=== PATIENT | female | born 1950 | race Caucasian/White ===

== ENCOUNTER 2016-10-01 13:50 | Emergency (ER) | payer MEDICARE ==
[2016-10-01] MEDS ORDERED: RX INFO: IV CONTRAST WAS GIVEN 1 EACH MISC MISCELLANE PRN (14:54)
[2016-10-01] MEDS ORDERED: SODIUM CHLORIDE 0.9% 1,000 ML IV STA (14:54)
[2016-10-01] MEDS ORDERED: PANTOPRAZOLE 40 MG/10 ML VIAL IVP STA (14:54)
--- NOTE | 2016-10-01 15:21 | ED ---
GI Bleed HPI - General Chief complaint: GI Bleed Stated complaint: poss internal bleeding/back pain-sent by Dr. Celaya Seen by Provider: 10/01/16 14:43 Source: patient Mode of arrival: ambulatory Limitations: no limitations - History of Present Illness Initial comments: This 65-year-old white female presents with a complaint of some black stools. She barely has had 3 black stools over the past one day. She also complains of some pain into her left flank region for last 2-3 weeks. She apparently fell 3- 1/2 weeks ago but denies injuring her flank region. She also has some mild diffuse anterior abdominal pain. This is minimal in nature but she states that her flank pain is fairly severe. She's been taking Motrin 800 twice a day for the pain. She denies any nausea vomiting diarrhea. She has had occasional constipation but denies any fevers. She denies any hematuria or dysuria but has had occasional urgency. She denies any previous similar incidents. She denies any bright red blood per rectum. She denies any history of a colonoscopy in the past. She has not utilized any Pepto-Bismol. She was seen by Dr. Ornelas today in office and sent to the ER for further treatment and evaluation. She refuses any pain medications initially. No other complaints or modifying factors. - Related Data Home Medications Medication Instructions Recorded Confirmed Albuterol Inhaler [Ventolin Hfa 1 - 2 puff INHALATION Q6HR PRN 02/22/15 10/01/16 Inhaler] Gabapentin [Neurontin] 300 mg PO BID 02/22/15 10/01/16 Ibuprofen [Motrin] 800 mg PO BID PRN 02/22/15 10/01/16 Linagliptin [Tradjenta] 5 mg PO DAILY 02/22/15 10/01/16 Oxybutynin Chloride [Oxybutynin 10 mg PO DAILY 02/22/15 10/01/16 Chloride ER] Simvastatin [Zocor] 20 mg PO HS 02/22/15 10/01/16 Topiramate [Topamax] 50 mg PO BID 02/22/15 10/01/16 Losartan [Cozaar] 12.5 - 25 mg PO DAILY 10/01/16 10/01/16 Previous Rx's Medication Instructions Recorded traMADol HCl [Ultram] 50 - 100 mg PO Q6H PRN #20 tab 10/01/16 Allergies Allergy/AdvReac Type Severity Reaction Status Date / Time venom-honey bee Allergy Anaphylaxis Verified 10/01/16 15:00 [bee venom (honey bee)] ANCHOVIES Allergy Anaphylaxis Uncoded 10/01/16 13:58 Review of Systems ROS Statement: Those systems with pertinent positive or pertinent negative responses have been documented in the HPI. ROS Other: All systems not noted in ROS Statement are negative. Past Medical History Past Medical History: Asthma, Diabetes Mellitus, Hyperlipidemia, Hypertension, Musculoskeletal Disorder, Osteoarthritis (OA), Pneumonia, Seizure Disorder, Syncope, Thyroid Disorder Additional Past Medical History / Comment(s): HX KIDNEY STONES. DDD. HX OCC IDIOPATHIC SEIZURES, R/T STRESS, CHRONIC MIGRAINES, LAST SEIZURE EPISODE 03/07. MVP. ARRYTHMIA. SEE H&P. History of Any Multi-Drug Resistant Organisms: None Reported Past Surgical History: Adenoidectomy, Appendectomy, Breast Surgery, Cholecystectomy, Hysterectomy, Pacemaker, Tonsillectomy, Tubal Ligation Additional Past Surgical History / Comment(s): BREAST BX. TUBAL PREG PROC. SINUS/RHINOPLASTY. cataract surg. Loop recorder placed 03/2015. Past Anesthesia/Blood Transfusion Reactions: No Reported Reaction Additional Past Anesthesia/Blood Transfusion Reaction / Comment(s): Pt reports never having a blood transfusion. Past Psychological History: Bipolar, Depression Smoking Status: Current every day smoker Past Alcohol Use History: None Reported Past Drug Use History: None Reported - Past Family History Mother Family Medical History: Cancer General Exam - General Exam Comments Initial Comments: GENERAL: The patient is well nourished and well hydrated. VITAL SIGNS: Heart rate, blood pressure, respiratory rate reviewed as recorded in nurse's notes. EYES: Pupils are round and reactive. Extraocular movements are intact. No conjunctival / lid redness or swelling. ENT: No external evidence of injury, swelling, or ecchymosis. Airway is patent. Throat is clear. NECK: Nontender. No swelling or evidence of injury. No subcutaneous emphysema. Trachea is midline. No thyroid mass. HEART: Regular rate and rhythm. Good peripheral pulses. LUNGS/CHEST: Breath sounds clear and equal bilaterally. No rales, rhonchi, or wheezes. No ecchymosis, subcutaneous emphysema, or tenderness. ABDOMEN: There is mild diffuse abdominal tenderness. There is mild tenderness in the left flank. No palpable masses or organomegaly. No peritoneal signs. No abdominal wall swelling or ecchymosis. EXTREMITIES: No extremity tenderness. Normal muscle tone and function. No thoracolumbar tenderness. NEUROLOGIC: Sensation is grossly intact. Cranial nerve exam reveals face is symmetrical, tongue is midline, speech is clear. SKIN: No abrasions or ecchymosis is noted. No induration or masses noted. PSYCHIATRIC: Alert and oriented. Appropriate behavior and judgment. Rectal exam: No gross blood is identified, no hemorrhoids identified. Hemoccult is negative. Limitations: no limitations Course Vital Signs 10/01/16 10/01/16 10/01/16 13:55 15:03 15:14 Temperature 97.6 F 98.4 F Pulse Rate 84 56 L Respiratory 18 18 Rate Blood Pressure 135/63 121/64 O2 Sat by Pulse 97 96 Oximetry 10/01/16 10/01/16 16:22 17:16 Temperature 98.5 F Pulse Rate 70 60 Respiratory 18 20 Rate Blood Pressure 147/63 128/69 O2 Sat by Pulse 100 98 Oximetry Medical Decision Making - Medical Decision Making The patient was seen and examined. All diagnostics were reviewed. An EKG was done which shows a normal sinus rhythm at a rate of 62 with a sinus arrhythmia. She has occasional paced atrial complexes. The CA interval is 138, QRS duration is 74, and the QTc interval is 442. An IV is started and she is mildly hydrated. Laboratory is reviewed and shows a stable hemoglobin at 12.7. Occult blood is negative. Remainder labs are unremarkable. Patient had a computed tomography scan of the abdomen and pelvis and this does show a 2-3 cm hypodensity in the pelvis which may be related to uterine fibroid. Is felt as though this is unlikely as the patient apparently had a hysterectomy. Exact cause of her flank pain is not determined but is felt that certainly could be muscle skeletal in nature. She relates a significant history of back problems with previous epidural injections. Is felt as though she is stable to follow- up with Dr. Ornelas for further workup and treatment in this regard. They pain medication will be prescribed in this regard. In addition, it does not appear as though there is any current evidence of GI bleed. She nevertheless is taking ibuprofen 800 mg twice a day and she is told to stop this in case she did have a GI bleed previously that has resolved. She's never had a colonoscopy and is felt as though she benefit from follow-up with GI in this regard. It is felt as though she is stable for discharge and leaves no severe distress. - Lab Data Result diagrams: 10/01/16 15:21 10/01/16 15:21 Lab Results 10/01/16 10/01/16 10/01/16 Range/Units 15:21 15:21 15:21 WBC 7.6 (3.8-10.6) k/uL RBC 3.99 (3.80-5.40) m/uL Hgb 12.7 (11.4-16.0) gm/dL Hct 36.9 (34.0-46.0) % MCV 92.5 (80.0-100.0) fL MCH 31.9 (25.0-35.0) pg MCHC 34.4 (31.0-37.0) g/dL RDW 12.9 (11.5-15.5) % Plt Count 198 (150-450) k/uL Neutrophils % 61 % Lymphocytes % 30 % Monocytes % 5 % Eosinophils % 2 % Basophils % 1 % Neutrophils # 4.6 (1.3-7.7) k/uL Lymphocytes # 2.3 (1.0-4.8) k/uL Monocytes # 0.4 (0-1.0) k/uL Eosinophils # 0.1 (0-0.7) k/uL Basophils # 0.0 (0-0.2) k/uL PT (9.0-12.0) sec INR (<1.1) APTT (22.0-30.0) sec Sodium 143 (137-145) mmol/L Potassium 4.0 (3.5-5.1) mmol/L Chloride 109 H (98-107) mmol/L Carbon Dioxide 22 (22-30) mmol/L Anion Gap 12 mmol/L BUN 13 (7-17) mg/dL Creatinine 0.82 (0.52-1.04) mg/dL Est GFR (MDRD) Af Amer >60 (>60 ml/min/1.73 sqM) Est GFR (MDRD) Non-Af >60 (>60 ml/min/1.73 sqM) Glucose 123 H (74-99) mg/dL POC Glucose (mg/dL) (75-99) mg/dL POC Glu Service Order Clerk ID Plasma Lactic Acid Golden 1.2 (0.7-2.0) mmol/L Calcium 10.0 (8.4-10.2) mg/dL Total Bilirubin 0.5 (0.2-1.3) mg/dL AST 22 (14-36) U/L ALT 42 (9-52) U/L Alkaline Phosphatase 91 (38-126) U/L Total Protein 7.7 (6.3-8.2) g/dL Albumin 4.4 (3.5-5.0) g/dL Amylase <30 L (30-110) U/L Lipase 77 (23-300) U/L Stool Occult Blood (Negative) Blood Type Blood Type Recheck Antibody Screen Spec Expiration Date 10/01/16 10/01/16 10/01/16 Range/Units 15:21 15:21 15:29 WBC (3.8-10.6) k/uL RBC (3.80-5.40) m/uL Hgb (11.4-16.0) gm/dL Hct (34.0-46.0) % MCV (80.0-100.0) fL MCH (25.0-35.0) pg MCHC (31.0-37.0) g/dL RDW (11.5-15.5) % Plt Count (150-450) k/uL Neutrophils % % Lymphocytes % % Monocytes % % Eosinophils % % Basophils % % Neutrophils # (1.3-7.7) k/uL Lymphocytes # (1.0-4.8) k/uL Monocytes # (0-1.0) k/uL Eosinophils # (0-0.7) k/uL Basophils # (0-0.2) k/uL PT 10.4 (9.0-12.0) sec INR 1.0 (<1.1) APTT 23.4 (22.0-30.0) sec Sodium (137-145) mmol/L Potassium (3.5-5.1) mmol/L Chloride (98-107) mmol/L Carbon Dioxide (22-30) mmol/L Anion Gap mmol/L BUN (7-17) mg/dL Creatinine (0.52-1.04) mg/dL Est GFR (MDRD) Af Amer (>60 ml/min/1.73 sqM) Est GFR (MDRD) Non-Af (>60 ml/min/1.73 sqM) Glucose (74-99) mg/dL POC Glucose (mg/dL) (75-99) mg/dL POC Glu Service Order Clerk ID Plasma Lactic Acid Golden (0.7-2.0) mmol/L Calcium (8.4-10.2) mg/dL Total Bilirubin (0.2-1.3) mg/dL AST (14-36) U/L ALT (9-52) U/L Alkaline Phosphatase (38-126) U/L Total Protein (6.3-8.2) g/dL Albumin (3.5-5.0) g/dL Amylase (30-110) U/L Lipase (23-300) U/L Stool Occult Blood Negative (Negative) Blood Type A Positive Blood Type Recheck CABO Indicated Antibody Screen NEGATIVE Spec Expiration Date 10/04/2016 - 232010/01/16 Range/Units 15:42 WBC (3.8-10.6) k/uL RBC (3.80-5.40) m/uL Hgb (11.4-16.0) gm/dL Hct (34.0-46.0) % MCV (80.0-100.0) fL MCH (25.0-35.0) pg MCHC (31.0-37.0) g/dL RDW (11.5-15.5) % Plt Count (150-450) k/uL Neutrophils % % Lymphocytes % % Monocytes % % Eosinophils % % Basophils % % Neutrophils # (1.3-7.7) k/uL Lymphocytes # (1.0-4.8) k/uL Monocytes # (0-1.0) k/uL Eosinophils # (0-0.7) k/uL Basophils # (0-0.2) k/uL PT (9.0-12.0) sec INR (<1.1) APTT (22.0-30.0) sec Sodium (137-145) mmol/L Potassium (3.5-5.1) mmol/L Chloride (98-107) mmol/L Carbon Dioxide (22-30) mmol/L Anion Gap mmol/L BUN (7-17) mg/dL Creatinine (0.52-1.04) mg/dL Est GFR (MDRD) Af Amer (>60 ml/min/1.73 sqM) Est GFR (MDRD) Non-Af (>60 ml/min/1.73 sqM) Glucose (74-99) mg/dL POC Glucose (mg/dL) 134 H (75-99) mg/dL POC Glu Service Order Clerk ID Laurel Quintero Plasma Lactic Acid Golden (0.7-2.0) mmol/L Calcium (8.4-10.2) mg/dL Total Bilirubin (0.2-1.3) mg/dL AST (14-36) U/L ALT (9-52) U/L Alkaline Phosphatase (38-126) U/L Total Protein (6.3-8.2) g/dL Albumin (3.5-5.0) g/dL Amylase (30-110) U/L Lipase (23-300) U/L Stool Occult Blood (Negative) Blood Type Blood Type Recheck Antibody Screen Spec Expiration Date Disposition Clinical Impression: Abdominal pain, Melena, Flank pain Disposition: HOME SELF-CARE Condition: Fair Instructions: Abdominal Pain (ED), Gastrointestinal Bleeding (ED), Back Pain ( ED) Additional Instructions: Please stop the Motrin 800 mg. Prescriptions: traMADol HCl [Ultram] 50 - 100 mg PO Q6H PRN #20 tab PRN Reason: Pain Referrals: Jonathan Ornelas MD [Primary Care Provider] - 1-2 days Lila Allen MD [STAFF PHYSICIAN] - 10/06/16 Time of Disposition: 17:38
[2016-10-01 15:37] LABS: Basophils % (A) 1 %; CH 32.4; CHCM 35.2; Eosinophils # (A) 0.1 k/uL (0-0.7); Eosinophils % (A) 2 %; HCT 36.9 % (34.0-46.0); HGB 12.7 gm/dL (11.4-16.0); Luc # (Auto) 0.14; Luc % (Auto) 2; Lymphocytes # (A) 2.3 k/uL (1.0-4.8); Lymphocytes % (A) 30 %; MCH 31.9 pg (25.0-35.0); MCHC 34.4 g/dL (31.0-37.0); MCV 92.5 fL (80.0-100.0); Mean Platelet Volume 7.2; Monocytes # (A) 0.4 k/uL (0-1.0); Monocytes % (A) 5 %; Neutrophils # (A) 4.6 k/uL (1.3-7.7); Neutrophils % (A) 61 %; RBC 3.99 m/uL (3.80-5.40); RDW 12.9 % (11.5-15.5); WBC 7.6 k/uL (3.8-10.6); WBC (Perox) 8.14
[2016-10-01 15:46] LABS: Glucose,Whole Blood 134 mg/dL (75-99)
[2016-10-01 15:48] LABS: ALT 42 U/L (9-52); AST 22 U/L (14-36); Alkaline Phosphatase 91 U/L (38-126); Amylase <30 U/L (30-110); Anion Gap 12 mmol/L; Blood Urea Nitrogen 13 mg/dL (7-17); Carbon Dioxide 22 mmol/L (22-30); Chloride 109 mmol/L (98-107); Glucose 123 mg/dL (74-99); Non-African American GFR(MDRD) >60 (>60 ml/min/1.73 sqM); Sodium 143 mmol/L (137-145); Total Bilirubin 0.5 mg/dL (0.2-1.3); Total Protein 7.7 g/dL (6.3-8.2)
[2016-10-01] MEDS ORDERED: HYDROmorphone 1 MG/ML 1 ML SYRINGE IVP STA (15:50)
[2016-10-01 15:54] LABS: Partial Thromboplastin Time 23.4 sec (22.0-30.0); Prothrombin Time 10.4 sec (9.0-12.0)
--- NOTE | 2016-10-01 17:15 | CT ---
EXAMINATION TYPE: CT abdomen pelvis w con DATE OF EXAM: 10/01/2016 4:13 PM HISTORY: Pt states of RLQ pain and black stools. CT DLP: 1535mGycm Automated Exposure Control for Dose Reduction was Utilized. CONTRAST: CT scan of the abdomen and pelvis is performed without oral but with IV Contrast, patient injected wi th 100 mL of Omnipaque 300. COMPARISON: None. FINDINGS: LUNG BASES: There is partial visualization of right-sided pacemaker/AICD leads. LIVER/GB: Gallbladder is not visualized and likely surgically absent. Liver is diffusely low dense carrizales ggesting fatty infiltration. PANCREAS: No significant abnormality is seen. SPLEEN: No significant abnormality is seen. ADRENALS: No significant abnormality is seen. KIDNEYS: There is nonobstructing 3 mm calculus lower pole level right kidney on axial image 37. There is symmetric cortical medullary uptake and excretion from both kidneys without evidence of hydroneph rosis bilaterally. Some scattered pelvic phleboliths are seen. BOWEL: Evaluation of bowel is suboptimal due to lack of enteric contrast. There is no suspicious dila tation of stomach or duodenal sweep. There is no suspicious small or large bowel dilatation. Terminal ileum is felt within normal limits. There is no inflammatory change at base of cecum to suggest acut e appendicitis. UTERUS/ADNEXA: There is 2.3 cm low dense lesion at level of the uterus could reflect uterine fibroid. Possible remnant uterus is somewhat small in size. LYMPH NODES: No greater than 1cm abdominal or pelvic lymph nodes are appreciated. OSSEOUS STRUCTURES: There is disc space narrowing with vacuum disc phenomenon and anterior T11-T12 le juan m. OTHER: No significant additional abnormality is seen. IMPRESSION: No bowel obstruction is present. No suspicious bowel wall thickening identified. No signi ficant finding is seen to account for patient's symptoms on this study. A 2.3 cm low dense round lesi on in pelvis could reflect uterine fibroid, consider pelvic ultrasound follow-up.
[2016-10-01 17:18] VITALS: RESP 20
[2016-10-01 17:57] VITALS: BP 113/57; PULSE 77; TEMP 97.6
== END 2016-10-01 18:02 | disposition home or self-care (01) ==
LOC: EC 13:50
DX: R10.9 Unspecified abdominal pain (principal); K92.1 Melena; G40.909 Epilepsy, unspecified, not intractable, without status epilepticus; E11.9 Type 2 diabetes mellitus without complications; E78.5 Hyperlipidemia, unspecified; I10 Essential (primary) hypertension; Z95.0 Presence of cardiac pacemaker; G43.909 Migraine, unspecified, not intractable, without status migrainosus; Z79.899 Other long term (current) drug therapy; Z79.84 Long term (current) use of oral hypoglycemic drugs; Z87.442 Personal history of urinary calculi; F17.200 Nicotine dependence, unspecified, uncomplicated; Z91.030 Bee allergy status; Z91.018 Allergy to other foods
CPT/HCPCS: 36415; 93005; 86900; 86901; 80053; 82150; 83605; 83690; 85025; 85610; 85730; 86850; 82272; 74177; 99285; 96374; 96375; 96361; J1170; Q9967; C9113

== ENCOUNTER → 2017-06-05 | Outpatient (CLI) | payer MEDICARE ==
[2017-06-05 12:41] LABS: Blood Urea Nitrogen 16 mg/dL (7-17); Non-African American GFR(MDRD) >60 (>60 ml/min/1.73 sqM)
--- NOTE | 2017-06-05 14:14 | CT ---
EXAMINATION TYPE: CT lumbar spine wo con DATE OF EXAM: 06/05/2017 COMPARISON: NONE HISTORY: 66-year-old female low back pain TECHNIQUE: Contiguous axial scanning of the lumbar spine without IV contrast. Coronal and sagittal re constructions performed. CT DLP: 901.9 mGycm Automated exposure control for dose reduction was used. FINDINGS: There is a 3 mm calculus in the mid right ureter with mild hydronephrosis. Noise artifacts from patient's large body habitus. Vertebral body heights are preserved and alignment is maintained. Moderate to advanced degenerative disc disease at T11-T12 with endplate irregularity, sclerosis, and small Schmorl's nodes. Disc vacuum is present at this level. Hypertrophic facet arthropathy mid to lower lumbar spine. At T11-T12, no focal disc herniation or significant foraminal stenosis is seen. At T12-L1, may be a tiny left paracentral disc protrusion, axial image 17 without significant foramin al stenosis. At L1-L2, no canal or foraminal stenosis identified. At L2-L3, mild bulging disc without significant canal or foraminal stenosis seen. At L3-L4, ligamentum flavum thickening and facet arthropathy with mild right neuroforaminal stenosis. No significant spinal canal stenosis. At L4-L5, mild bulging disc with ligamentum flavum thickening and hypertrophic facet arthropathy. No significant canal or foraminal stenosis identified. At L5-S1, there is a central disc osteophyte complex with facet degenerative change. This results in mild bilateral neuroforaminal stenosis without spinal canal stenosis. IMPRESSION: 1. A 3 MM CALCULUS IN THE MID RIGHT URETER WITH MILD OBSTRUCTIVE UROPATHY SUGGESTED. CORRELATE FOR RE NAL COLIC. 2. MILD MULTILEVEL DEGENERATIVE DISC DISEASE. HYPERTROPHIC FACET ARTHROPATHY MID TO LOWER LUMBAR SPIN E. THIS RESULTS IN VERY MINIMAL MILD NEURAL FORAMINAL NARROWING OUTLINED ABOVE. BY CT, NO TORSTEN CA NAL COMPROMISE SEEN. 3. MORE ADVANCED DEGENERATIVE DISC DISEASE AT T11-T12.
--- NOTE | 2017-06-05 14:20 | CT ---
EXAMINATION TYPE: CT brain wo/w con DATE OF EXAM: 06/05/2017 COMPARISON: NONE HISTORY: 66-year-old female Multiple head injuries, pain TECHNIQUE: Examination was done in axial plane before and after intravenous contrast. 100 mL Omnipaq ue 300 was given. Coronal and sagittal reconstructions performed. CT DLP: 2252.37 mGycm Automated exposure control for dose reduction was used. FINDINGS: Extensive artifacts within the posterior fossa secondary to the patient's head tilt. Within the supratentorium, there is no evidence of acute intracranial hemorrhage, acute ischemic rehan nges, mass, mass-effect, or extra-axial fluid collection. There is no effacement of cerebral sulci o r basal subarachnoid cisterns. There is no hydrocephalus. There is no midline shift. Goncalves-white ma tter distinction is preserved. Benign basal ganglia calcifications. Mild patchy periventricular white matter hypodensities suggest m ild burden of chronic small vessel ischemic disease. Partial opacification of the bilateral mastoid air cells and suspect prior nasal surgery. Globes appe ar intact. Rightward nasal septal deviation. No abnormal enhancing intracranial lesions seen. IMPRESSION: 1. Extensive artifacts along the posterior cranial fossa limiting assessment here. 2. Otherwise, there are mild changes of chronic small vessel ischemic disease. No acute intracranial abnormality seen. 3. No enhancing intracranial lesion seen in the supratentorium.
--- NOTE | 2017-06-05 14:26 | CT ---
EXAMINATION TYPE: CT cervical spine wo con DATE OF EXAM: 06/05/2017 COMPARISON: NONE HISTORY: 66-year-old female with neck pain TECHNIQUE: Contiguous axial scanning of the cervical spine without IV contrast. Coronal and sagittal reconstructions performed. CT DLP: 732.6 mGycm Automated exposure control for dose reduction was used. FINDINGS: No craniocervical junction abdomen only, predental space widening, or prevertebral soft tissue swelli ng. Facet arthropathy throughout and mild uncovertebral joint arthropathy lower cervical spine. Changes result in trace grade 1 anterolisthesis at C6-C7 and C7-T1. Sclerotic focus, likely bone island within the posterior elements of C2. Moderate disc session plate degenerative change particularly in the mid to lower cervical spine from C5 through C7 levels. At C2-C3, there is hypertrophic facet arthropathy towards the right causing a severe right neural for aminal stenosis. At C3-C4, there is posterior disc extrusion with uncovertebral joint and facet degenerative change. C hanges result in moderate bilateral neuroforaminal stenosis and mild spinal canal stenosis. At C4-C5, facet and uncovertebral joint arthropathy causing mild to moderate left and mild right neur oforaminal stenosis without significant spinal canal stenosis. There is some ligamentum flavum thicke brianna at this level. At C5-C6, there is disc osteophyte complex with uncovertebral joint and facet degenerative change. Th is results in moderate left and [id number] right neuroforaminal stenosis with moderate spinal c anal stenosis. At C6-C7, there is hypertrophic facet arthropathy with disc osteophyte complex and trace anterolisthe sis that may contribute to a moderate spinal canal stenosis. There is moderate right neuroforaminal s tenosis. At C7-T1, there is facet arthropathy and trace anterolisthesis with mild right neural foraminal steno sis without significant spinal canal stenosis seen. 7 mm hypodense nodule within the right lobe of the thyroid gland. The thyroid gland is atrophic. IMPRESSION: 1. MODERATE DISC/ENDPLATE DEGENERATIVE CHANGE PARTICULARLY FROM C5 THROUGH C7 LEVELS. HYPERTROPHIC FA CET ARTHROPATHY THROUGHOUT. 2. TRACE DEGENERATIVE GRADE 1 ANTEROLISTHESES AT C6-C7 AND C7-T1. 3. CHANGES MAY RESULT IN A MODERATE SPINAL CANAL STENOSIS AT C6-C7 AND C7-T1. 4. VARIABLE NEURAL FORAMINAL STENOSES OUTLINED ABOVE.
== END | disposition home or self-care (01) ==
LOC: RADCTMAIN 11:51
PROVIDERS: ATTEND Psychiatry & Neurology Neurology
DX: M48.03 Spinal stenosis, cervicothoracic region (principal); M99.71 Connective tissue and disc stenosis of intervertebral foramina of cervical region; M99.73 Connective tissue and disc stenosis of intervertebral foramina of lumbar region; M51.36 Other intervertebral disc degeneration, lumbar region; M43.13 Spondylolisthesis, cervicothoracic region; M47.812 Spondylosis without myelopathy or radiculopathy, cervical region; M25.78 Osteophyte, vertebrae; M46.82 Other specified inflammatory spondylopathies, cervical region; I67.82 Cerebral ischemia; R90.89 Other abnormal findings on diagnostic imaging of central nervous system; M46.86 Other specified inflammatory spondylopathies, lumbar region
CPT/HCPCS: 82565; 84520; 72125; 72131; 70470; 36415; Q9967

== ENCOUNTER 2017-12-25 15:20 | Emergency (ER) | payer MEDICARE ==
--- NOTE | 2017-12-25 16:58 | ED ---
General Adult HPI - General Chief complaint: Fall Stated complaint: Hand,Knee & back pain. Fall in parking lot Time Seen by Provider: 12/25/17 16:49 Source: patient, RN notes reviewed Mode of arrival: ambulatory Limitations: no limitations - History of Present Illness Initial comments: Patient 67-year-old female presented emergency room today with chief complaint of fall that occurred just outside hospital. She states that she was up at the hospital seeing her . She states she walked outside was walking across the parking lot. She states the wind is quite strong and it picked her up and. Her across. She states she landed down on the left knee. Also does not remember hitting her head but is been very sleepy and tired since the fall. Patient does admit to abrasion to the volar aspect of the right hand. She denies any other complaints or symptoms at this time. Patient denies any recent fever, chills, shortness of breath, chest pain, back pain, abdominal pain, nausea or vomiting, numbness or tingling, dysuria or hematuria, constipation or diarrhea, headaches or visual changes, or any other complaints. - Related Data Home Medications Medication Instructions Recorded Confirmed Albuterol Inhaler [Ventolin Hfa 1 - 2 puff INHALATION Q6HR PRN 02/22/15 12/25/17 Inhaler] Gabapentin [Neurontin] 300 mg PO BID 02/22/15 12/25/17 Linagliptin [Tradjenta] 5 mg PO DAILY 02/22/15 12/25/17 Oxybutynin Chloride [Oxybutynin 10 mg PO DAILY 02/22/15 12/25/17 Chloride ER] Simvastatin [Zocor] 20 mg PO HS 02/22/15 12/25/17 Topiramate [Topamax] 50 mg PO BID 02/22/15 12/25/17 Losartan [Cozaar] 12.5 - 25 mg PO DAILY 10/01/16 12/25/17 HYDROcodone/APAP 5-325MG [[place] 1 tab PO Q6HR PRN 12/25/17 12/25/17 5-325] Allergies Allergy/AdvReac Type Severity Reaction Status Date / Time venom-honey bee Allergy Anaphylaxis Verified 12/25/17 17:07 [bee venom (honey bee)] ANCHOVIES Allergy Anaphylaxis Uncoded 05/04/18 15:33 Review of Systems ROS Statement: Those systems with pertinent positive or pertinent negative responses have been documented in the HPI. ROS Other: All systems not noted in ROS Statement are negative. Past Medical History Past Medical History: Asthma, Diabetes Mellitus, Hyperlipidemia, Hypertension, Musculoskeletal Disorder, Osteoarthritis (OA), Pneumonia, Seizure Disorder, Syncope, Thyroid Disorder Additional Past Medical History / Comment(s): HX KIDNEY STONES. DDD. HX OCC IDIOPATHIC SEIZURES, R/T STRESS, CHRONIC MIGRAINES, LAST SEIZURE EPISODE 03/07. MVP. ARRYTHMIA. SEE H&P. History of Any Multi-Drug Resistant Organisms: None Reported Past Surgical History: Adenoidectomy, Appendectomy, Breast Surgery, Cholecystectomy, Hysterectomy, Pacemaker, Tonsillectomy, Tubal Ligation Additional Past Surgical History / Comment(s): BREAST BX. TUBAL PREG PROC. SINUS/RHINOPLASTY. cataract surg. Loop recorder placed 03/2015. Past Anesthesia/Blood Transfusion Reactions: No Reported Reaction Additional Past Anesthesia/Blood Transfusion Reaction / Comment(s): Pt reports never having a blood transfusion. Past Psychological History: Bipolar, Depression Smoking Status: Current every day smoker Past Alcohol Use History: None Reported Past Drug Use History: None Reported - Past Family History Mother Family Medical History: Cancer General Exam - General Exam Comments Initial Comments: General: The patient is awake and alert, in no distress, and does not appear acutely ill. Eye: Pupils are equal, round and reactive to light, extra-ocular movements are intact. No nystagmus. There is normal conjunctiva bilaterally. No signs of icterus. Ears, nose, mouth and throat: There are moist mucous membranes and no oral lesions. Neck: The neck is supple, there is no tenderness or JVD. Cardiovascular: There is a regular rate and rhythm. No murmur, rub or gallop is appreciated. Respiratory: Lungs are clear to auscultation, respirations are non-labored, breath sounds are equal. No wheezes, stridor, rales, or rhonchi. Musculoskeletal: Normal ROM. Full range motion. Patient has normal appearance of cervical thoracic, lumbar spine. No step-off deformity. Patient does have mild tenderness lumbar L1-L2. Patient does have a normal appearance of the left knee. Does have tenderness over the anterior aspect. Strength 5/5. Sensation intact. Pulses equal bilaterally 2+. Patient has full range motion of the right hand. No bony tenderness on exam. No tenderness in cervical spine. Neurological: A&O x 3. CN II-XII intact, There are no obvious motor or sensory deficits. Coordination appears grossly intact. Speech is normal. Skin: Skin is warm and dry and no rashes or lesions are noted. Psychiatric: Cooperative, appropriate mood & affect, normal judgment. Limitations: no limitations Course Vital Signs 12/25/17 15:30 Temperature 98.8 F Pulse Rate 83 Respiratory 18 Rate Blood Pressure 121/57 O2 Sat by Pulse 96 Oximetry Medical Decision Making - Medical Decision Making Patient's CT of the head and neck and x-rays of the left knee, and lumbar spine are negative for any acute abnormalities. Patient doing well at this time. Patient will be discharged. Advised return if symptoms increase worsen or for concerns. Disposition Clinical Impression: Fall, Abrasion of right hand, Contusion of left knee Disposition: HOME SELF-CARE Condition: Good Instructions: Abrasion (ED) Additional Instructions: Please use medication as discussed. Please follow-up with family doctor in the next 2 days of symptoms have not improved. Please return to emergency room if the symptoms increase or worsen or for any other concerns. Is patient prescribed a controlled substance at d/c from ED?: No Referrals: Jonathan Ornelas MD [Primary Care Provider] - 1-2 days Time of Disposition: 18:13
--- NOTE | 2017-12-25 17:43 | CT ---
EXAMINATION TYPE: CT brain elvira oviedo DATE OF EXAM: 12/25/2017 COMPARISON: NONE HISTORY: Patient complains of headache and neck pain post fall today. CT DLP: 1671 mGycm Automated exposure control for dose reduction was used. TECHNIQUE: CT scan of the head and cervical spine are performed without contrast. FINDINGS: There is no acute intracranial hemorrhage, mass effect, or midline shift identified. The ventricles and sulci are within normal limits in size. The globes are intact and the visualized sin uses are clear. Cervical spine is visualized in its entirety from C1 through upper thoracic levels and demonstrates s atisfactory alignment without evidence of acute fracture or dislocation. Prominent multilevel cervic al spondylosis changes are appreciated. Posterior element focal sclerosis is also noted, an incidenta l finding. Prevertebral soft tissue appears within normal limits. The C1-C2 articulation is unremark able. IMPRESSION: 1. There is no acute fracture or dislocation evident in the cervical spine. 2. No acute intracranial hemorrhage, mass effect, or midline shift is seen.
--- NOTE | 2017-12-25 18:06 | XR ---
PROCEDURE: XR knee complete LT 3 views DATE AND TIME: 12/25/2017 5:30 PM REFERRING PHYSICIAN: Volodymyr Avila CLINICAL INDICATION: [facility], Pain TECHNIQUE: Department protocol. COMPARISON: None FINDINGS: There is no fracture or malalignment. The soft tissues are unremarkable. Chondrocalcinosis is noted throughout the medial and lateral compartments. Mild tricompartmental join t space narrowing. IMPRESSION: NO ACUTE PROCESS.
--- NOTE | 2017-12-25 18:09 | XR ---
PROCEDURE: XR lumbar spine 3V DATE AND TIME: 12/25/2017 5:30 PM REFERRING PHYSICIAN: Volodymyr Avila CLINICAL INDICATION: PH[facility], Pain after fall today TECHNIQUE: Department protocol. COMPARISON: CT 06/05/1970 FINDINGS: There is no malalignment and no definite acute active. Superior endplate T12 wedging is noted, vacuum disc phenomenon was seen at the T11-12 intervertebral disc on the prior CT. There are prominent advanced facet osteophytic changes at all levels, with relatively mild degenerati ve disc changes IMPRESSION: NO DEFINITE ACUTE PROCESS.
[2017-12-25 18:39] VITALS: BP 138/70; PULSE 79; RESP 16; TEMP 97.8
== END 2017-12-25 18:38 | disposition home or self-care (01) ==
LOC: EC 15:20
DX: S80.02XA Contusion of left knee, initial encounter (principal); S60.511A Abrasion of right hand, initial encounter; M54.9 Dorsalgia, unspecified; J45.909 Unspecified asthma, uncomplicated; E11.9 Type 2 diabetes mellitus without complications; E78.5 Hyperlipidemia, unspecified; I10 Essential (primary) hypertension; G40.909 Epilepsy, unspecified, not intractable, without status epilepticus; G43.909 Migraine, unspecified, not intractable, without status migrainosus; F17.200 Nicotine dependence, unspecified, uncomplicated; Z79.84 Long term (current) use of oral hypoglycemic drugs; Z79.899 Other long term (current) drug therapy; Z91.030 Bee allergy status; Z91.013 Allergy to seafood; Z95.0 Presence of cardiac pacemaker; W19.XXXA Unspecified fall, initial encounter; Y92.481 Parking lot as the place of occurrence of the external cause
CPT/HCPCS: 70450; 72100; 72125; 99284

== ENCOUNTER 2018-08-07 04:30 | Emergency (ER) | payer MEDICARE ==
[2018-08-07 04:47] VITALS: RESP 17; TEMP 98.4
[2018-08-07] MEDS ORDERED: SODIUM CHLORIDE 0.9% 1,000 ML IV STA (04:52)
--- NOTE | 2018-08-07 04:53 | ED ---
Seizure HPI - General Chief Complaint: Seizure Stated Complaint: Seizure Time Seen by Provider: 08/07/18 04:48 Source: patient Mode of arrival: EMS Limitations: no limitations - History of Present Illness Initial Comments: Gabrielle is a 67-year-old female with a history of seizure disorder who presents the emergency department today for an evaluation of seizure. Patient reports that she is currently in the process of moving, she was required to be out of her previous apartment by Thursday of last week. Patient states that she had all of her medications in a weekly pill box and took all of her medications Thursday, however upon moving her pills were packed up and she believes they may have been placed in her car with all of her other belongings and she's been unable to find them. Patient states that she contacted her primary care physician who refilled her gabapentin and oxybutynin but would not prescribe her Klonopin which patient reports she takes 1 mg of daily. Patient reports she had a seizure on Thursday but didn't seek any medical care. Patient reports that she is currently sleeping at her former neighbor's house on a recliner. Patient reports that she is under a lot of stress and has been significantly sleep deprived. Patient states that she is scheduled to move to [place] tomorrow, she states that all of her belongings are packed and her and a friend are moving to [place]. Patient believes that the sleep deprivation, stress and not having her Klonopin is contributed to her having 2 seizures this week. Patient reports that she was asleep and believe she had a seizure in her sleep. She reports that she woke up and she had been in her lip and had loss of bladder continence. Patient reports that she got up and was walking around but felt somewhat confused so 911 was called. - Related Data Home Medications Medication Instructions Recorded Confirmed Albuterol Inhaler [Ventolin Hfa 1 - 2 puff INHALATION Q6HR PRN 02/22/15 12/25/17 Inhaler] Gabapentin [Neurontin] 300 mg PO BID 02/22/15 12/25/17 Linagliptin [Tradjenta] 5 mg PO DAILY 02/22/15 12/25/17 Oxybutynin Chloride [Oxybutynin 10 mg PO DAILY 02/22/15 12/25/17 Chloride ER] Simvastatin [Zocor] 20 mg PO HS 02/22/15 12/25/17 Topiramate [Topamax] 50 mg PO BID 02/22/15 12/25/17 Losartan [Cozaar] 12.5 - 25 mg PO DAILY 10/01/16 12/25/17 HYDROcodone/APAP 5-325MG [[place] 1 tab PO Q6HR PRN 12/25/17 12/25/17 5-325] Previous Rx's Medication Instructions Recorded clonazePAM 1 mg PO TID 3 Days #9 tab 08/07/18 Allergies Allergy/AdvReac Type Severity Reaction Status Date / Time venom-honey bee Allergy Anaphylaxis Verified 08/07/18 04:47 [bee venom (honey bee)] ANCHOVIES Allergy Anaphylaxis Uncoded 08/07/18 04:47 Review of Systems ROS Statement: Those systems with pertinent positive or pertinent negative responses have been documented in the HPI. ROS Other: All systems not noted in ROS Statement are negative. Past Medical History Past Medical History: Asthma, Diabetes Mellitus, Hyperlipidemia, Hypertension, Musculoskeletal Disorder, Osteoarthritis (OA), Pneumonia, Seizure Disorder, Syncope, Thyroid Disorder Additional Past Medical History / Comment(s): HX KIDNEY STONES. DDD. HX OCC IDIOPATHIC SEIZURES, R/T STRESS, CHRONIC MIGRAINES, MVP, ARRYTHMIA. History of Any Multi-Drug Resistant Organisms: None Reported Past Surgical History: Adenoidectomy, Appendectomy, Breast Surgery, Cholecystectomy, Hysterectomy, Pacemaker, Tonsillectomy, Tubal Ligation Additional Past Surgical History / Comment(s): BREAST BX. TUBAL PREG PROC. SINUS/RHINOPLASTY. cataract surg. Loop recorder placed 03/2015. Past Anesthesia/Blood Transfusion Reactions: No Reported Reaction Additional Past Anesthesia/Blood Transfusion Reaction / Comment(s): Pt reports never having a blood transfusion. Past Psychological History: Bipolar, Depression Smoking Status: Current every day smoker Past Alcohol Use History: None Reported Past Drug Use History: None Reported - Past Family History Mother Family Medical History: Cancer General Exam - General Exam Comments Initial Comments: Physical Exam GENERAL: Patient is well-developed and well-nourished. Patient is nontoxic and well- hydrated and is in no distress. HENT: Normocephalic, Atraumatic. Evidence of biting of the lower lip EYES: PERRL, EOMI PULMONARY: Unlabored respirations. No audible rales rhonchi or wheezing was noted. CARDIOVASCULAR: Systolic click Systolic murmur ABDOMEN: Soft and nontender with normal bowel sounds. SKIN: Skin is clear with no lesions or rashes and otherwise unremarkable. : Deferred NEUROLOGIC: Patient is alert and oriented x3. Moving all extremities spontaneously No tremor or seizure activity noted MUSCULOSKELETAL: Normal extremities with adequate strength and full range of motion. No lower extremity swelling or edema. No calf tenderness. PSYCHIATRIC: Anxious Limitations: no limitations Limitations: no limitations Course Vital Signs 08/07/18 04:43 Temperature 98.4 F Pulse Rate 85 Respiratory 17 Rate Blood Pressure 125/75 O2 Sat by Pulse 97 Oximetry Medical Decision Making - Medical Decision Making The patient was seen and evaluated, history is obtained from the patient Patient with a history of idiopathic seizures previously treated with Topamax but has not been on that for a number of years. Currently on gabapentin and Klonopin. Patient is been out of her Klonopin for 6 days due to some social issues. I suspect that the patient's seizure is due to slip deprivation, high social stress, missing medications. Labs with no significant abnormalities, patient here for discharge home I reviewed patient's maps, patient is been consisting getting her medications from the ER and or her primary care office. Patient has not had a Klonopin prescription filled since November I will provide the patient with 3 days of Klonopin so that she can drive to her new home in [place]. All questions pertaining care were answered, return parameters were discussed and patient was discharged home in stable condition. - Lab Data Result diagrams: 08/07/18 05:10 08/07/18 05:10 Lab Results 08/07/18 08/07/18 Range/Units 05:10 05:10 WBC 7.9 (3.8-10.6) k/uL RBC 3.76 L (3.80-5.40) m/uL Hgb 11.7 (11.4-16.0) gm/dL Hct 35.2 (34.0-46.0) % MCV 93.6 (80.0-100.0) fL MCH 31.1 (25.0-35.0) pg MCHC 33.2 (31.0-37.0) g/dL RDW 13.1 (11.5-15.5) % Plt Count 197 (150-450) k/uL Neutrophils % 73 % Lymphocytes % 18 % Monocytes % 6 % Eosinophils % 2 % Basophils % 0 % Neutrophils # 5.8 (1.3-7.7) k/uL Lymphocytes # 1.4 (1.0-4.8) k/uL Monocytes # 0.5 (0-1.0) k/uL Eosinophils # 0.1 (0-0.7) k/uL Basophils # 0.0 (0-0.2) k/uL Sodium 142 (137-145) mmol/L Potassium 3.2 L (3.5-5.1) mmol/L Chloride 112 H (98-107) mmol/L Carbon Dioxide 22 (22-30) mmol/L Anion Gap 8 mmol/L BUN 10 (7-17) mg/dL Creatinine 0.78 (0.52-1.04) mg/dL Est GFR (CKD-EPI)AfAm >90 (>60 ml/min/1.73 sqM) Est GFR (CKD-EPI)NonAf 78 (>60 ml/min/1.73 sqM) Glucose 141 H (74-99) mg/dL Calcium 9.2 (8.4-10.2) mg/dL Total Bilirubin 0.5 (0.2-1.3) mg/dL AST 20 (14-36) U/L ALT 23 (9-52) U/L Alkaline Phosphatase 69 (38-126) U/L Total Protein 7.0 (6.3-8.2) g/dL Albumin 4.0 (3.5-5.0) g/dL - EKG Data -: EKG Interpreted by [facility] EKG shows normal: sinus rhythm EKG Comments: EKG obtained at 5:07 AM, rate is 70 rhythm is sinus, normal axis, normal intervals, MD 138, QRS 78, QTC is 438. There is no acute ST elevations or depressions or evidence of acute ischemia or infarction no prolonged QT. Disposition Clinical Impression: Seizure, Nonadherence to medication Disposition: HOME SELF-CARE Condition: Stable Instructions: Recurrent Seizures in Adults (ED) Prescriptions: clonazePAM 1 mg PO TID 3 Days #9 tab Is patient prescribed a controlled substance at d/c from ED?: Yes When asked, does pt state using other controlled substances?: No If prescribed controlled substance>3 days was MAPS reviewed?: Yes Referrals: None,Stated [Primary Care Provider] - 1-2 days Time of Disposition: 06:08
[2018-08-07 05:28] LABS: Basophils % (A) 0 %; Eosinophils # (A) 0.1 k/uL (0-0.7); Eosinophils % (A) 2 %; HCT 35.2 % (34.0-46.0); HGB 11.7 gm/dL (11.4-16.0); Lymphocytes # (A) 1.4 k/uL (1.0-4.8); Lymphocytes % (A) 18 %; MCH 31.1 pg (25.0-35.0); MCHC 33.2 g/dL (31.0-37.0); MCV 93.6 fL (80.0-100.0); Mean Platelet Volume 7.2; Monocytes # (A) 0.5 k/uL (0-1.0); Monocytes % (A) 6 %; Neutrophils # (A) 5.8 k/uL (1.3-7.7); Neutrophils % (A) 73 %; Platelet Count 197 k/uL (150-450); RBC 3.76 m/uL (3.80-5.40); RDW 13.1 % (11.5-15.5); WBC 7.9 k/uL (3.8-10.6)
[2018-08-07 05:38] LABS: ALT 23 U/L (9-52); AST 20 U/L (14-36); Alkaline Phosphatase 69 U/L (38-126); Anion Gap 8 mmol/L; Blood Urea Nitrogen 10 mg/dL (7-17); Calcium 9.2 mg/dL (8.4-10.2); Carbon Dioxide 22 mmol/L (22-30); Chloride 112 mmol/L (98-107); Glucose 141 mg/dL (74-99); Potassium 3.2 mmol/L (3.5-5.1); Sodium 142 mmol/L (137-145); Total Bilirubin 0.5 mg/dL (0.2-1.3)
[2018-08-07] MEDS ORDERED: POTASSIUM CHLORIDE ER 20 MEQ TAB.ER PO STA (05:58)
[2018-08-07] MEDS ORDERED: ACETAMINOPHEN TAB 325 MG TAB PO STA (06:05)
[2018-08-07] MEDS ORDERED: clonazePAM 1 MG TAB PO STA (06:05)
[2018-08-07 06:21] VITALS: BP 134/66; PULSE 95
== END 2018-08-07 06:48 | disposition home or self-care (01) ==
LOC: EC 04:30
DX: G40.909 Epilepsy, unspecified, not intractable, without status epilepticus (principal); Z91.19 Patient's noncompliance with other medical treatment and regimen; J45.909 Unspecified asthma, uncomplicated; E11.9 Type 2 diabetes mellitus without complications; E78.5 Hyperlipidemia, unspecified; I10 Essential (primary) hypertension; F17.200 Nicotine dependence, unspecified, uncomplicated; Z95.1 Presence of aortocoronary bypass graft; Z79.84 Long term (current) use of oral hypoglycemic drugs; Z79.899 Other long term (current) drug therapy; Z91.030 Bee allergy status; Z91.013 Allergy to seafood
CPT/HCPCS: 36415; 80053; 85025; 93005; 96360; 99284